=== PATIENT | female | born 1995 | race Caucasian/White ===

== ENCOUNTER 2018-03-13 16:01 | Emergency (ER) | payer OTHER ==
[~2018-03-13] VITALS: Ht 170.2 cm; Wt 59.1 kg
[~2018-03-13 16:01] MED LIST: NORCO 325 MG-51 TAB PO; ZOFRAN 4MG T4 MG/TAB PO
[2018-03-13 16:07] VITALS: TEMP 99.2
[2018-03-13] MEDS ORDERED: BLISOVI 24 FE1 EACH PO (16:09)
[2018-03-13 17:34] VITALS: BP 125/75; PULSE 90
== END 2018-03-13 17:36 | disposition home or self-care (01) ==
LOC: COL.ER 16:01
DX: S61.211A Laceration without foreign body of left index finger without damage to nail, initial encounter (principal); F17.210 Nicotine dependence, cigarettes, uncomplicated; F12.90 Cannabis use, unspecified, uncomplicated; Z23 Encounter for immunization; W25.XXXA Contact with sharp glass, initial encounter; Y92.009 Unspecified place in unspecified non-institutional (private) residence as the place of occurrence of the external cause

== ENCOUNTER 2018-03-22 12:36 | Emergency (ER) | payer OTHER ==
[~2018-03-22 12:36] MED LIST changes: +BLISOVI 24 FE1 EACH PO
[2018-03-22 12:47] VITALS: BP 128/86; PULSE 73; TEMP 98.3
== END 2018-03-22 12:54 | disposition home or self-care (01) ==
LOC: COL.ER 12:36
DX: S61.412D Laceration without foreign body of left hand, subsequent encounter (principal)

== ENCOUNTER 2018-08-10 12:09 | Day surgery (SDC) | payer OTHER ==
[~2018-08-10] VITALS: Ht 170.2 cm; Wt 60.8 kg
[2018-08-10 12:29] VITALS: BP 96/69; PULSE 83; TEMP 98.3
[2018-08-10] MEDS ORDERED: LEVSIN0.125 M1 PO (13:52)
[2018-08-10 14:00] VITALS: BP 107/70; PULSE 77
[2018-08-10 14:15] VITALS: BP 105/71; PULSE 73
[2018-08-10 14:30] VITALS: BP 98/74; PULSE 64
== END 2018-08-10 15:13 | disposition home or self-care (01) ==
LOC: SDCO 12:09
DX: K64.0 First degree hemorrhoids (principal); R19.7 Diarrhea, unspecified; R63.4 Abnormal weight loss; Z83.79 Family history of other diseases of the digestive system
CPT/HCPCS: J2250; J2405; J3010; J7030

== ENCOUNTER 2018-09-30 21:25 | Emergency (ER) | payer OTHER ==
[~2018-09-30] VITALS: Ht 170.2 cm; Wt 60.5 kg
[~2018-09-30 21:25] MED LIST changes: -FLAGYL500 MG PO
[2018-09-30 21:29] VITALS: TEMP 98.3
[2018-09-30 22:04] LABS: COLLECTION METHOD CLEAN CATCH
[2018-09-30 22:09] LABS: PH 7 (5-8); SQUAMOUS EPITHELIAL 0-2 /hpf; URINE APPEARANCE Clear; URINE BACTERIA None Seen /hpf; URINE BILIRUBIN Negative (NEGATIVE); URINE BLOOD Negative (NEGATIVE); URINE COLOR Straw; URINE GLUCOSE Negative (NEGATIVE); URINE KETONE Negative (NEGATIVE); URINE LEUKOCYTE ESTERASE Negative (NEGATIVE); URINE NITRATE Negative (NEGATIVE); URINE PROTEIN(semi-quant) Negative (NEGATIVE); URINE RBC None Seen /hpf; URINE UROBILINOGEN Negative (NEGATIVE)
[2018-09-30] MEDS ORDERED: FLAGYL500 MG PO (23:04)
[2018-09-30] MEDS ORDERED: NORCO 325 MG-51 TAB PO (23:05)
[2018-09-30 23:15] VITALS: BP 110/73; PULSE 77
== END 2018-09-30 23:20 | disposition home or self-care (01) ==
LOC: COL.ER 21:25
PROVIDERS: Nurse Practitioner
DX: N83.201 Unspecified ovarian cyst, right side (principal); N76.0 Acute vaginitis; B96.89 Other specified bacterial agents as the cause of diseases classified elsewhere; F17.210 Nicotine dependence, cigarettes, uncomplicated; F12.90 Cannabis use, unspecified, uncomplicated
CPT/HCPCS: J1170; J2405; J7030; Q9967

== ENCOUNTER → 2018-09-30 | Outpatient (CLI) | payer OTHER ==
[~2018-09-30] MED LIST changes: +FLAGYL500 MG PO; +LEVSIN0.125 M1 PO
[2018-09-30 17:56] LABS: HEMATOCRIT 38.9 % (37.0-47.0); HEMOGLOBIN 13.2 g/dl (12.5-16.0); MEAN CELL VOLUME 93 fl (80.0-100.0); MEAN CORPUSCULAR HEMOGLOBIN 31 pg (27.0-31.0); MEAN CORPUSCULAR HGB CONC 34 g/dl (33.0-37.0); MEAN PLATELET VOLUME 10.4 fl (7.4-10.4); PLATELET COUNT 463 K/mm3 (130-400); REDCELL DISTRIBUTION WIDTH-CV 11.9 % (11.5-14.5)
[2018-09-30 18:02] LABS: CALCIUM 9.4 mg/dL (8.4-10.2); CREATININE, serum 0.69 mg/dL (0.52-1.25)
== END ==
LOC: ZCOL.LAB 16:25
PROVIDERS: Family Medicine
DX: N89.8 Other specified noninflammatory disorders of vagina (principal); R10.31 Right lower quadrant pain

== ENCOUNTER 2019-04-17 17:06 | Emergency (ER) | payer OTHER ==
[~2019-04-17] VITALS: Ht 170.2 cm; Wt 63.5 kg
[~2019-04-17 17:06] MED LIST changes: +FLAGYL500 MG PO
[2019-04-17 17:22] VITALS: TEMP 97.2
[2019-04-17 17:55] LABS: BASO # 0.1 (0.0-0.2); BASO % 0.3 % (0.0-2.0); GRAN # 14.1 (1.4-6.5); GRAN % 87.3 % (42.2-75.2); HEMOGLOBIN 13.1 g/dl (12.5-16.0); LYMPH # 1.2 (1.2-3.4); LYMPH % 7.6 % (20.0-51.0); MEAN CELL VOLUME 90 fl (80.0-100.0); MEAN CORPUSCULAR HEMOGLOBIN 31 pg (27.0-31.0); MEAN CORPUSCULAR HGB CONC 35 g/dl (33.0-37.0); MEAN PLATELET VOLUME 9.6 fl (7.4-10.4); MONO # 0.7 (0.1-0.6); MONO % 4.4 % (1.7-9.3); PLATELET COUNT 436 K/mm3 (130-400); RED BLOOD COUNT 4.21 M/mm3 (4.10-5.30); REDCELL DISTRIBUTION WIDTH-CV 12.3 % (11.5-14.5)
[2019-04-17 18:03] LABS: ALANINE AMINOTRANSFERASE 20 U/L (9-52); ALBUMIN 4.6 gm/dL (3.5-5.0); ALKALINE PHOSPHATASE 64 U/L (50-136); ANION GAP 13 mmol/L (7-16); AST,SGOT 27 U/L (15-37); BILIRUBIN,TOTAL 0.5 mg/dL (0.0-1.0); BLOOD UREA NITROGEN 10 mg/dL (7-17); CALCIUM 9.4 mg/dL (8.4-10.2); CARBON DIOXIDE 19 mmol/L (22-30); CHLORIDE 110 mmol/L (98-107); CREATININE, serum 0.52 (0.52-1.25); GLUCOSE 132 mg/dL (74-106); LIPASE 30 U/L (23-300); POTASSIUM 3.5 mmol/L (3.4-5.0); SODIUM 142 mmol/L (137-145); TOTAL PROTEIN 7.9 gm/dL (6.4-8.2)
[2019-04-17 18:12] LABS: C-REACTIVE PROTEIN < 0.5 mg/dL (0.0-0.9)
[2019-04-17 19:11] LABS: COLLECTION METHOD CLEAN CATCH
[2019-04-17 19:20] LABS: MUCOUS Present /lpf; PH 8 (5-8); SQUAMOUS EPITHELIAL 0-2 /hpf; URINE APPEARANCE Clear; URINE BACTERIA None Seen /hpf; URINE BILIRUBIN Negative (NEGATIVE); URINE BLOOD 1+ (NEGATIVE); URINE COLOR Yellow; URINE GLUCOSE 1+ (NEGATIVE); URINE KETONE Trace (NEGATIVE); URINE LEUKOCYTE ESTERASE Negative (NEGATIVE); URINE NITRATE Negative (NEGATIVE); URINE PROTEIN(semi-quant) Negative (NEGATIVE); URINE RBC 0-2 /hpf; URINE UROBILINOGEN Negative (NEGATIVE)
[2019-04-17 22:02] VITALS: BP 96/45; PULSE 68
== END 2019-04-17 22:13 | disposition home or self-care (01) ==
LOC: COL.ER 17:06
PROVIDERS: Nurse Practitioner
DX: R19.7 Diarrhea, unspecified (principal); R10.84 Generalized abdominal pain; R11.2 Nausea with vomiting, unspecified; F17.210 Nicotine dependence, cigarettes, uncomplicated; F12.90 Cannabis use, unspecified, uncomplicated
CPT/HCPCS: J1170; J1885; J2405; J2550; J2765; J7030

== ENCOUNTER → 2020-04-18 | Outpatient (CLI) | payer OTHER | LOC: ZCOL.LAB 10:42 | DX: R05 Cough (principal); R06.02 Shortness of breath; Z20.828 Contact with and (suspected) exposure to other viral communicable diseases ==

== ENCOUNTER 2020-08-28 10:18 | Emergency (ER) | payer OTHER ==
[~2020-08-28] VITALS: Ht 170.2 cm; Wt 59.1 kg
[2020-08-28 10:21] VITALS: BP 151/103; TEMP 97.3
[2020-08-28 13:40] LABS: COLLECTION METHOD CLEAN CATCH
[2020-08-28 13:53] LABS: MUCOUS Present /lpf; PH 5 (5-8); URINE APPEARANCE Clear; URINE BACTERIA None Seen /hpf; URINE BILIRUBIN Negative (NEGATIVE); URINE BLOOD Negative (NEGATIVE); URINE COLOR Yellow; URINE GLUCOSE Negative (NEGATIVE); URINE KETONE Trace (NEGATIVE); URINE LEUKOCYTE ESTERASE Negative (NEGATIVE); URINE NITRATE Negative (NEGATIVE); URINE PROTEIN(semi-quant) 1+ (NEGATIVE); URINE RBC 0-2 /hpf; URINE UROBILINOGEN Negative (NEGATIVE); URINE WBC 0-2 /hpf
[2020-08-28 14:52] VITALS: PULSE 85
== END 2020-08-28 14:52 | disposition home or self-care (01) ==
LOC: COL.ER 10:18
PROVIDERS: Nurse Practitioner Primary Care
DX: S29.011A Strain of muscle and tendon of front wall of thorax, initial encounter (principal); F17.210 Nicotine dependence, cigarettes, uncomplicated; W17.89XA Other fall from one level to another, initial encounter
CPT/HCPCS: J1885; J2360

== ENCOUNTER 2021-11-07 18:31 | Emergency (ER) | payer SELFPAY ==
[~2021-11-07] VITALS: Ht 170.2 cm; Wt 63.6 kg
[2021-11-07 18:39] VITALS: TEMP 99.7
[2021-11-07 19:07] VITALS: BP 126/80; PULSE 80
[2021-11-07 19:30] LABS: BASO # 0.1 K/mm3 (0.0-0.2); BASO % 0.3 % (0.0-2.0); EOS % 0.1 % (0.0-4.0); GRAN # 13.6 K/mm3 (1.4-6.5); GRAN % 79.3 % (42.2-75.2); LYMPH % 11.5 % (20.0-51.0); MEAN CELL VOLUME 93 fl (80.0-100.0); MEAN CORPUSCULAR HEMOGLOBIN 31 pg (27-31); MEAN CORPUSCULAR HGB CONC 33 g/dl (33.0-37.0); MEAN PLATELET VOLUME 9.2 fl (7.4-10.4); MONO # 1.4 K/mm3 (0.1-0.6); MONO % 8.3 % (1.7-9.3); PLATELET COUNT 768 K/mm3 (130-400); RED BLOOD COUNT 3.55 M/mm3 (4.10-5.30); REDCELL DISTRIBUTION WIDTH-CV 12.4 % (11.5-14.5)
[2021-11-07 19:31] LABS: COLLECTION METHOD CLEAN CATCH
[2021-11-07 19:38] LABS: HEMATOCRIT 32.9 % (37.0-47.0)
[2021-11-07 19:43] LABS: PH 6 (5-8); URINE APPEARANCE Hazy (CLEAR/HAZY); URINE BACTERIA Rare /hpf (NONE SEEN); URINE BILIRUBIN Negative (NEGATIVE); URINE BLOOD 2+ (NEGATIVE); URINE COLOR Yellow (YELLOW); URINE GLUCOSE Negative (NEGATIVE); URINE KETONE Negative (NEGATIVE); URINE LEUKOCYTE ESTERASE 1+ (NEGATIVE); URINE NITRATE Positive (NEGATIVE); URINE PROTEIN(semi-quant) 1+ (NEGATIVE); URINE UROBILINOGEN >=4.0 (NEGATIVE)
[2021-11-07 19:48] LABS: ALBUMIN 2.8 gm/dL (3.5-5.0); BILIRUBIN,TOTAL 0.6 mg/dL (0.2-1.2); CALCIUM 8.7 mg/dL (8.4-10.2); CREATININE, serum 0.67 mg/dL (0.57-1.11); POTASSIUM 3.1 mmol/L (3.5-4.5); TOTAL PROTEIN 7.9 gm/dL (6.2-8.1)
[2021-11-07] MEDS ORDERED: OMNICEF 300MG300 MG PO (21:14)
== END 2021-11-07 19:07 | disposition home or self-care (01) ==
LOC: COL.ER 18:31
PROVIDERS: Physician Assistant
DX: N12 Tubulo-interstitial nephritis, not specified as acute or chronic (principal); Z20.822 Contact with and (suspected) exposure to COVID-19; Z32.02 Encounter for pregnancy test, result negative
CPT/HCPCS: J0696; J2405; J7030; Q9967

== ENCOUNTER 2022-03-11 09:42 | Emergency (ER) | payer SELFPAY ==
[~2022-03-11] VITALS: Ht 170.2 cm; Wt 68.2 kg
[~2022-03-11 09:42] MED LIST changes: +OMNICEF 300MG300 MG PO
[2022-03-11 09:52] VITALS: TEMP 98.5
[2022-03-11 10:25] LABS: BASO # 0.1 K/mm3 (0.0-0.2); BASO % 0.4 % (0.0-2.0); EOS # 0.1 K/mm3 (0.0-0.7); EOS % 0.3 % (0.0-4.0); GRAN # 12.9 K/mm3 (1.4-6.5); GRAN % 76.8 % (42.2-75.2); HEMATOCRIT 43.8 % (37.0-47.0); HEMOGLOBIN 15.7 g/dl (12.5-16.0); LYMPH # 2.4 K/mm3 (1.2-3.4); LYMPH % 14.2 % (20.0-51.0); MEAN CELL VOLUME 89 fl (80.0-100.0); MEAN CORPUSCULAR HEMOGLOBIN 32 pg (27-31); MEAN CORPUSCULAR HGB CONC 36 g/dl (33.0-37.0); MEAN PLATELET VOLUME 9.5 fl (7.4-10.4); MONO # 1.3 K/mm3 (0.1-0.6); MONO % 7.9 % (1.7-9.3); PLATELET COUNT 664 K/mm3 (130-400); RED BLOOD COUNT 4.95 M/mm3 (4.10-5.30); REDCELL DISTRIBUTION WIDTH-CV 11.9 % (11.5-14.5)
[2022-03-11 10:42] LABS: ALBUMIN 4.3 gm/dL (3.5-5.0); BILIRUBIN,TOTAL 1.5 mg/dL (0.2-1.2); CALCIUM 9.6 mg/dL (8.4-10.2); CREATININE, serum 0.87 mg/dL (0.57-1.11); TOTAL PROTEIN 8.7 gm/dL (6.2-8.1)
[2022-03-11 10:44] LABS: POTASSIUM 2.8 mmol/L (3.5-4.5)
[2022-03-11 11:16] LABS: COLLECTION METHOD CLEAN CATCH
[2022-03-11 11:28] LABS: MUCOUS Present (NOT PRESENT); PH 5 (5-8); URINE APPEARANCE Cloudy (CLEAR/HAZY); URINE BACTERIA Rare /hpf (NONE SEEN); URINE BILIRUBIN Negative (NEGATIVE); URINE BLOOD 1+ (NEGATIVE); URINE COLOR Amber (YELLOW); URINE GLUCOSE Negative (NEGATIVE); URINE KETONE 1+ (NEGATIVE); URINE LEUKOCYTE ESTERASE Negative (NEGATIVE); URINE NITRATE Negative (NEGATIVE); URINE PROTEIN(semi-quant) 2+ (NEGATIVE); URINE UROBILINOGEN >=4.0 (NEGATIVE)
[2022-03-11] MEDS ORDERED: PROMETHAZINE12.5 M5 PO (15:23)
[2022-03-11 16:14] VITALS: BP 121/77; PULSE 69
== END 2022-03-11 16:15 | disposition home or self-care (01) ==
LOC: COL.ER 09:42
PROVIDERS: Physician Assistant
DX: R11.2 Nausea with vomiting, unspecified (principal); E87.6 Hypokalemia; Z20.822 Contact with and (suspected) exposure to COVID-19; Z28.310 Unvaccinated for COVID-19
CPT/HCPCS: J2405; J2550; J3480; J7030; Q9967

== ENCOUNTER 2022-11-12 04:57 | Emergency (ER) | payer SELFPAY ==
[~2022-11-12] VITALS: Ht 170.2 cm; Wt 63.6 kg
[~2022-11-12 04:57] MED LIST changes: +PROMETHAZINE12.5 M5 PO; +ZOFRAN ODT4 MG PO
[2022-11-12 05:01] VITALS: TEMP 97.7
[2022-11-12 05:23] LABS: COLLECTION METHOD CLEAN CATCH
[2022-11-12 05:30] LABS: MUCOUS Present (NOT PRESENT); URINE BACTERIA Rare /hpf (NONE SEEN)
[2022-11-12 05:32] LABS: URINE APPEARANCE Hazy (CLEAR/HAZY); URINE COLOR Amber (YELLOW); URINE GLUCOSE Negative (NEGATIVE); URINE KETONE 1+ (NEGATIVE); URINE PROTEIN(semi-quant) 2+ (NEGATIVE)
[2022-11-12 05:33] LABS: URINE BLOOD TRACE-INTACT (NEGATIVE); URINE NITRATE Negative (NEGATIVE)
[2022-11-12 05:33] LABS: BASO % 0.2 % (0.0-2.0); EOS % 0.1 % (0.0-4.0); GRAN # 13.3 K/mm3 (1.4-6.5); GRAN % 79.2 % (42.2-75.2); HEMATOCRIT 44.6 % (37.0-47.0); HEMOGLOBIN 15.4 g/dl (12.5-16.0); LYMPH # 1.9 K/mm3 (1.2-3.4); LYMPH % 11.5 % (20.0-51.0); MEAN CELL VOLUME 91 fl (80.0-100.0); MEAN CORPUSCULAR HEMOGLOBIN 31 pg (27-31); MEAN CORPUSCULAR HGB CONC 35 g/dl (33.0-37.0); MEAN PLATELET VOLUME 9.4 fl (7.4-10.4); MONO # 1.5 K/mm3 (0.1-0.6); MONO % 8.8 % (1.7-9.3); PLATELET COUNT 689 K/mm3 (130-400); REDCELL DISTRIBUTION WIDTH-CV 12.7 % (11.5-14.5)
[2022-11-12 05:37] LABS: TRICYCLIC ANTIDEPRESS URINE NEGATIVE
[2022-11-12 05:52] LABS: ALANINE AMINOTRANSFERASE 43 U/L (0-55); ALBUMIN 4.5 gm/dL (3.5-5.0); ALKALINE PHOSPHATASE 82 U/L (40-150); ANION GAP 15 mmol/L (7-16); AST,SGOT 31 U/L (5-34); BILIRUBIN,TOTAL 1.3 mg/dL (0.2-1.2); BLOOD UREA NITROGEN 20 mg/dL (7-19); CALCIUM 10.1 mg/dL (8.4-10.2); CARBON DIOXIDE 27 mmol/L (22-29); CHLORIDE 98 mmol/L (98-107); CREATININE, serum 0.82 mg/dL (0.57-1.11); GLUCOSE 149 mg/dL (70-99); POTASSIUM 3.1 mmol/L (3.5-4.5); SODIUM 140 mmol/L (136-145); TOTAL PROTEIN 8.5 gm/dL (6.2-8.1)
[2022-11-12 05:53] LABS: ACETAMINOPHEN < 1.0 ug/mL (10-30); ALCOHOL(ethanol),MEDICAL < 10 mg/dL (0-10); SALICYLATE < 5.0 mg/dL (15.0-30.0)
[2022-11-12 06:12] LABS: TSH w REFLEX 1.634 uIU/mL (0.350-4.940)
[2022-11-12 08:57] VITALS: BP 133/91; PULSE 67
[2022-11-12] MEDS ORDERED: ZOFRAN ODT4 MG PO (20:30)
== END 2022-11-12 08:57 | disposition home or self-care (01) ==
LOC: COL.ER 04:57
PROVIDERS: Emergency Medicine
DX: R11.2 Nausea with vomiting, unspecified (principal); E87.6 Hypokalemia; R45.851 Suicidal ideations; D72.829 Elevated white blood cell count, unspecified; F17.210 Nicotine dependence, cigarettes, uncomplicated; Z20.822 Contact with and (suspected) exposure to COVID-19; Z28.310 Unvaccinated for COVID-19
CPT/HCPCS: J2405; J2550; J7030

== ENCOUNTER 2022-11-14 11:45 | Emergency (ER) | payer SELFPAY ==
[~2022-11-14] VITALS: Ht 170.2 cm; Wt 63.6 kg
[2022-11-14 11:58] VITALS: TEMP 98.4
[2022-11-14 13:28] LABS: COLLECTION METHOD CLEAN CATCH
[2022-11-14 13:30] LABS: BASO # 0.1 K/mm3 (0.0-0.2); BASO % 0.4 % (0.0-2.0); EOS # 0.1 K/mm3 (0.0-0.7); EOS % 0.6 % (0.0-4.0); GRAN # 12.1 K/mm3 (1.4-6.5); GRAN % 80.4 % (42.2-75.2); HEMATOCRIT 38.6 % (37.0-47.0); HEMOGLOBIN 13.5 g/dl (12.5-16.0); LYMPH # 1.9 K/mm3 (1.2-3.4); LYMPH % 12.4 % (20.0-51.0); MEAN CELL VOLUME 90 fl (80.0-100.0); MEAN CORPUSCULAR HEMOGLOBIN 32 pg (27-31); MEAN CORPUSCULAR HGB CONC 35 g/dl (33.0-37.0); MEAN PLATELET VOLUME 9.6 fl (7.4-10.4); MONO # 0.9 K/mm3 (0.1-0.6); PLATELET COUNT 526 K/mm3 (130-400); RED BLOOD COUNT 4.27 M/mm3 (4.10-5.30); REDCELL DISTRIBUTION WIDTH-CV 12.2 % (11.5-14.5)
[2022-11-14 13:44] LABS: AMORPHOUS CRYSTAL Present (NOT PRESENT); MUCOUS Present (NOT PRESENT); SQUAMOUS EPITHELIAL 0-2 /hpf (0-10); URINE BACTERIA None Seen /hpf (NONE SEEN)
[2022-11-14 13:46] LABS: URINE APPEARANCE Clear (CLEAR/HAZY); URINE BLOOD 3+ (NEGATIVE); URINE COLOR Yellow (YELLOW); URINE GLUCOSE Negative (NEGATIVE); URINE NITRATE Negative (NEGATIVE); URINE PROTEIN(semi-quant) TRACE (NEGATIVE); URINE UROBILINOGEN 0.2 E.U/dL (0.2-1.0)
[2022-11-14 13:47] LABS: URINE KETONE 2+ (NEGATIVE)
[2022-11-14 13:50] LABS: ALBUMIN 4.1 gm/dL (3.5-5.0); BILIRUBIN,TOTAL 1.2 mg/dL (0.2-1.2); CREATININE, serum 0.71 mg/dL (0.57-1.11); POTASSIUM 3.1 mmol/L (3.5-4.5); TOTAL PROTEIN 7.1 gm/dL (6.2-8.1)
[2022-11-14 13:51] LABS: TRICYCLIC ANTIDEPRESS URINE NEGATIVE
[2022-11-14] MEDS ORDERED: PROMETHAZINE12.5 M5 PO (15:49)
[2022-11-14 16:01] VITALS: BP 115/86; PULSE 62
== END 2022-11-14 16:26 | disposition home or self-care (01) ==
LOC: COL.ER 11:45
PROVIDERS: Physician Assistant
DX: R11.2 Nausea with vomiting, unspecified (principal); R10.13 Epigastric pain; Z28.310 Unvaccinated for COVID-19
CPT/HCPCS: J0780; J7030